=== PATIENT | female | born 1995 | race Caucasian/White ===

== ENCOUNTER 2017-01-08 09:28 | Emergency (ER) | payer BC | END 2017-01-08 09:45 | disposition left against medical advice (07) | LOC: CED 09:28 | DX: Z53.21 Procedure and treatment not carried out due to patient leaving prior to being seen by health care provider (principal) ==

== ENCOUNTER 2017-10-21 21:46 | Emergency (ER) | payer BC, OTHER ==
[2017-10-21 21:50] VITALS: BP 133/89; TEMP 98.1
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
[2017-10-21 22:00] VITALS: PULSE 91; RESP 16
[2017-10-21 22:08] VITALS: O2SAT 94
== END 2017-10-21 22:08 | disposition home or self-care (01) ==
LOC: EEVIPCON 21:46
DX: Z04.1 Encounter for examination and observation following transport accident (principal); V43.52XA Car driver injured in collision with other type car in traffic accident, initial encounter; Y92.410 Unspecified street and highway as the place of occurrence of the external cause; Y99.1 Military activity; Y93.89 Activity, other specified